=== PATIENT | male | born 1985 | race American Indian/Alaskan Native ===

== ENCOUNTER 2022-02-07 11:09 | Emergency (ER) | payer SELFPAY ==
[2022-02-07 11:31] VITALS: BP 124/87
--- NOTE | 2022-02-07 14:32 | Emergency Department Report ---
ED ENT HPI - General Chief complaint: Dental/Oral Stated complaint: TOOTHACHE Time Seen by Provider: 02/07/22 14:05 Source: patient Mode of arrival: Ambulatory Limitations: No Limitations - History of Present Illness Initial comments: 36-year-old black male with a past medical history of spinal cancer presents to the emergency department for evaluation of 1 to 2-week history of worsening right lower dental abscess. He states that pain has been getting worse and he woke up this morning with swelling to the area. He states that he has been unable to make an appointment with his dentist. MD complaint: tooth pain, ear pain -: Gradual, week(s) (1-2) Location: tooth # (30) Severity: severe Quality: aching Consistency: constant Worsens with: eating, other (Palpation) Context- Dental: history of dental caries, poor dental care Associated Symptoms: gum swelling, toothache. denies: fever, cough, pain with swallowing, sore throat, tinnitus, hearing loss, discharge from ear, rhinorrhea - Related Data Previous Rx's Medication Instructions Recorded Last Taken Type Acetaminophen/Codeine [Tylenol 1 tab PO Q6H PRN #12 tab 02/07/22 Unknown Rx /Codeine # 3 tab] Amoxicillin/Potassium Clav 1 each PO BID #10 tab 02/07/22 Unknown Rx [Augmentin 875-125 Tablet] Ketorolac [Toradol] 10 mg PO Q6H PRN #14 tab 02/07/22 Unknown Rx ED Dental HPI - General Chief complaint: Dental/Oral Stated complaint: TOOTHACHE Time Seen by Provider: 02/07/22 14:05 Source: patient Mode of arrival: Ambulatory Limitations: No Limitations - Related Data Previous Rx's Medication Instructions Recorded Last Taken Type Acetaminophen/Codeine [Tylenol 1 tab PO Q6H PRN #12 tab 02/07/22 Unknown Rx /Codeine # 3 tab] Amoxicillin/Potassium Clav 1 each PO BID #10 tab 02/07/22 Unknown Rx [Augmentin 875-125 Tablet] Ketorolac [Toradol] 10 mg PO Q6H PRN #14 tab 02/07/22 Unknown Rx ED Review of Systems ROS: Stated complaint: TOOTHACHE Other details as noted in HPI Comment: All other systems reviewed and negative Constitutional: denies: chills, fever Eyes: denies: eye pain, eye discharge ENT: dental pain. denies: ear pain, throat pain, hearing loss, congestion Respiratory: denies: cough, shortness of breath, SOB with exertion, SOB at rest Cardiovascular: denies: chest pain Endocrine: no symptoms reported Gastrointestinal: denies: abdominal pain, nausea, vomiting, diarrhea, hematemesis Genitourinary: denies: urgency, dysuria Musculoskeletal: denies: back pain Skin: denies: rash, lesions Neurological: denies: headache, weakness Hematological/Lymphatic: denies: easy bleeding, easy bruising ED Past Medical Hx - Medications Home Medications: Home Medications Medication Instructions Recorded Confirmed Last Taken Type Acetaminophen/Codeine [Tylenol 1 tab PO Q6H PRN #12 tab 02/07/22 Unknown Rx /Codeine # 3 tab] Amoxicillin/Potassium Clav 1 each PO BID #10 tab 02/07/22 Unknown Rx [Augmentin 875-125 Tablet] Ketorolac [Toradol] 10 mg PO Q6H PRN #14 tab 02/07/22 Unknown Rx ED Physical Exam - General Limitations: No Limitations General appearance: alert, in no apparent distress - Head Head exam: Present: atraumatic, normocephalic - Eye Eye exam: Present: normal appearance. Absent: conjunctival injection - ENT ENT exam: Present: other (Swelling and tenderness noted to right side of face) - Expanded ENT Exam Expanded Teeth exam: Present: dental caries, dental tenderness # (30), other (Abscess gum surrounding tooth #30 with small amount of purulent drainage noted) - Neck Neck exam: Present: normal inspection - Respiratory Respiratory exam: Absent: respiratory distress - Cardiovascular Cardiovascular Exam: Present: regular rate - GI/Abdominal GI/Abdominal exam: Absent: distended - Back Exam Back exam: Present: normal inspection - Neurological Exam Neurological exam: Present: alert, oriented X3 - Psychiatric Psychiatric exam: Present: normal affect, normal mood - Skin Skin exam: Present: warm, dry, intact, normal color ED Course Vital Signs 02/07/22 11:29 Temperature 98.7 F Pulse Rate 83 Respiratory 16 Rate Blood Pressure 124/87 [Left] O2 Sat by Pulse 100 Oximetry ED Medical Decision Making - Medical Decision Making 36-year-old black male with a past medical history of spinal cancer presents to the emergency department for evaluation of 1 to 2-week history of worsening right lower dental abscess. He states that pain has been getting worse and he woke up this morning with swelling to the area. He states that he has been unable to make an appointment with his dentist. He denies fever. Exam consistent with right lower dental abscess. Patient will be treated with pain medication and antibiotics. He was advised to take medication as pre scribed and follow-up with dentist as soon as possible. Critical care attestation.: If time is entered above; I have spent that time in minutes in the direct care of this critically ill patient, excluding procedure time. ED Disposition Clinical Impression: Dental abscess Disposition: HOME / SELF CARE / HOMELESS Is pt being admited?: No Does the pt Need Aspirin: No Condition: Stable Instructions: Dental Abscess, [id number], Preventive Dental Care, Adult Additional Instructions: Take medications as prescribed. Follow-up with dentist as soon as possible. Prescriptions: Amoxicillin/Potassium Clav [Augmentin 875-125 Tablet] 1 each PO BID #10 tab Ketorolac [Toradol] 10 mg PO Q6H PRN #14 tab PRN Reason: Pain Acetaminophen/Codeine [Tylenol /Codeine # 3 tab] 1 tab PO Q6H PRN #12 tab PRN Reason: Pain , Severe (7-10) Referrals: [facility] [Outside] - 3-5 Days [facility] [Outside] - 3-5 Days Forms: Work/School Release Form(ED) Time of Disposition: 14:31
[2022-02-07] MEDS ORDERED: AMOXICILLIN/K CLAV 875/125MG TAB PO ONE (16:00)
[2022-02-07] MEDS ORDERED: DEXAMETHASONE 4 MG TAB PO ONE (16:00)
[2022-02-07] MEDS ORDERED: KETOROLAC 10 MG TAB PO ONE (16:00)
[2022-02-07] MEDS ORDERED: oxyCODONE /ACETAMINOPHEN 5-325MG TAB PO ONE (16:00)
== END 2022-02-07 15:46 | disposition home or self-care (01) ==
LOC: ED 11:09
DX: K04.7 Periapical abscess without sinus (principal)
CPT/HCPCS: 99282; J8540